=== PATIENT | male | born 1980 | race African-American/Black ===

== ENCOUNTER 2020-06-14 22:25 | Emergency (ER) | payer SELFPAY ==
[2020-06-14 22:26] VITALS: BP 127/72; PULSE 74; RESP 18; TEMP 36.6; O2SAT 97; BMI 24.3
--- NOTE | 2020-06-14 22:30 | ED_ITS ---
HPI - Abdominal Pain General Chief Complaint: Abdominal Pain Stated Complaint: abdominal pain Time Seen by Provider: 06/14/20 22:30 Source: patient Mode of arrival: ambulatory Limitations: no limitations History of Present Illness HPI narrative: this is a 40-year-old male who presents with gradually improvement GI symptoms that started and at that time he thought was attributable to either contaminated food or a possible mild infection. He experience some stomach discomfort with some nausea and vomiting but denies any associated diarrhea at that time and has had no fevers or chills. He reports that he was evaluated at [facility] on Sunday and at that time had lab work, ultrasound, CT scan conducted without any acute findings and he was discharged. He states that since that time he has had gradual improvement in his appetite and ability to tolerate small amounts of food. His concern today is that he still having some mild discomfort although he states it does feel much better than previously. Related Data Allergies Allergy/AdvReac Type Severity Reaction Status Date / Time No Known Allergies Allergy Unverified 04/01/20 15:15 Review of Systems Review of Systems Pertinent positives and negatives as stated in HPI 10 point review of systems otherwise negative. Physical Exam Vital Signs: Vital Signs: Last Vital Signs Temp 97.8 F 06/14/20 22:26 Pulse 74 06/14/20 22:26 Resp 18 06/14/20 22:26 BP 127/72 06/14/20 22:26 Pulse Ox 97 06/14/20 22:26 Body Mass Index 24.3 VITAL SIGNS: Reviewed. GENERAL: Well developed, well nourished, in no acute distress. HEAD: Normocephalic/atraumatic, EYES: PERRLA, EOMI intact without pain, no nystagmus/pallor/icterus noted EARS: Ext canals without abnormality, TMs non-bulging and non-erythematous NOSE: Nares patent bilateral OROPHARYNX: no oral lesions noted, posterior pharynx clear and non-erythematous without noted tonsillar enlargement/erythema/exudates NECK: Supple, no adenopathy LUNGS: Normal breath sounds. No adventitious sounds or accessory muscle use. SpO2<97> CARDIOVASCULAR: Regular rate and rhythm without noted murmurs, no JVD or lower extremity edema. ABDOMEN: Soft, non-tender, non-distended with bowel sounds. No rigidity. No guarding. No palpable masses or hernias noted MUSCULOSKELETAL: No tenderness, deformities, or effusions noted on gross inspection. EXTREMITIES: No cyanosis, clubbing or edema. SKIN: Inspection of the skin reveals no rashes, ulcerations, jaundice, pallor, or petechiae. NEUROLOGIC: Alert and oriented x 4. Strength and sensation to light touch were grossly intact x 4. Course Course Course Narrative: This is a 40-year-old male with history and clinical presentation consistent with likely food contamination versus viral gastroenteritis and as discussed with him at bedside it appears that he is gradually improving and that whole recovery is likely to take another 2-3 days. He was reassured that he is doing everything correctly and that he could be offered a GI cocktail and re-evaluated for improvement with subsequent recommendations to continue as outpatient with gradual increase in p.o. intake. All records from [facility] were reviewed to include labs and imaging that was conducted and confirmed there were no acute findings that would further explain patient's symptoms. Once again, he has had gradual improvement and he will be discharged home in stable condition. Discharge Plan Discharge Clinical Impression: Gastroenteritis Patient Disposition: Home, Self-Care Instructions: Gastritis (ED), Diet for Stomach Ulcers and Gastritis (ED) Additional Instructions: 1. Please review the recommendations for dietary guidelines for gastritis which should include limiting spicy, fatty, citrus, caffeine, or carbonated food items. 2. in addition, avoid extreme of temperatures. For example to not drink ice water or hot beverages. 3. recommend Maalox as directed on the outside bottle for additional symptom relief until your stomach is fully recovered. 4. continue with bland diet The patient and/or family acknowledge understanding of results (as applicable), diagnosis, treatment plan, need for follow up, and symptoms that should prompt a return to the emergency room. [facility] Past Medical History Source: nursing notes reviewed Social History Social History Advance Directives: No Advance Directives Information Provided: No
[2020-06-14] MEDS: Lidocaine HCl Viscous 2 % 15 ML SOLUTION 10 ML MUCOUS MEM (23:10)
[2020-06-14] MEDS: Magnesium Hydrox/Alum Hydrox 30 ML ORAL.SUSP PO (23:11)
--- NOTE | 2020-06-14 23:12 | PC.NURSE ---
Pt medicated per EMAR.
--- NOTE | 2020-06-14 23:42 | PC.NURSE ---
Pt reports feeling slightly better after GI cocktail. Pt aware of plan to obtain records from his recent visit to [facility].
[2020-06-15 01:00] VITALS: BP 124/88; PULSE 100; RESP 16; O2SAT 99
== END 2020-06-15 01:06 | disposition home or self-care (01) ==
PROVIDERS: Emergency Provider Student in an Organized Health Care Education/Training Program
DX: K52.9 Noninfective gastroenteritis and colitis, unspecified (principal); R10.9 Unspecified abdominal pain
CPT/HCPCS: 99283

== ENCOUNTER 2020-06-19 01:38 | Emergency (ER) | payer SELFPAY ==
[2020-06-19 01:40] VITALS: BP 124/76; PULSE 73; RESP 16; TEMP 37.2; O2SAT 97; BMI 24.3
--- NOTE | 2020-06-19 01:55 | ED.ABDPAIN ---
HPI - Abdominal Pain General Chief Complaint: Abdominal Pain Stated Complaint: abd pain Time Seen by Provider: 06/19/20 01:55 Source: patient Mode of arrival: ambulatory Limitations: no limitations History of Present Illness HPI narrative: patient with no significant past medical history notice upper abdominal pain after having Thanksgiving dinner with his family pain is and knows the upper abdomen patient went to [facility] had a CT scan and ultrasound which were negative his blood was also normal patient was seen here 06/14 for the same thing. Patient feels nauseated sometimes pain increases on head eating food have normal bowel movements under increased stress because of abdominal pain. Patient denied any fever no chills no cough Pertinent past history: none Onset (ago): week(s) (1) Pain Consistency: intermittent Location: epigastric Severity: mild Quality: cramping Radiation: none Migration to: no migration Exacerbating factors: eating Relieving factors: nothing Associated symptoms: nausea Related Data Previous Rx's Medication Instructions Recorded dicyclomine 20 mg PO QID PRN #20 tab 06/19/20 omeprazole 40 mg PO DAILY 28 Days #28 cap 06/19/20 Allergies Allergy/AdvReac Type Severity Reaction Status Date / Time No Known Allergies Allergy Unverified 04/01/20 15:15 Review of Systems Review of Systems REVIEW OF SYSTEMS: Pertinent positives and negatives are stated above in the history. GEN: no fevers, chills, fatigue HEENT: no nasal congestion, sore throat, ear pain NEURO: no headache, dizziness, focal weakness PULM: no cough, shortness of breath CV: no chest pain, palpitations, LE edema ABD: no vomiting, diarrhea : no dysuria, urgency, frequency SKIN: no rash ROS otherwise negative x 10 Physical Exam Vital Signs: Vital Signs: Last Vital Signs Temp 99.0 F 06/19/20 01:40 Pulse 73 06/19/20 01:40 Resp 16 06/19/20 01:40 BP 124/76 06/19/20 01:40 Pulse Ox 97 06/19/20 01:40 Body Mass Index 24.3 VITAL SIGNS: Reviewed. GENERAL: Well developed, well nourished, in no acute distress. HEAD: Normocephalic/atraumatic, EYES: PERRLA No pallor/icterus noted OROPHARYNX: Oral mucosa moist no oral lesions NECK: Supple, no adenopathy LUNGS: Normal breath sounds. No adventitious sounds or accessory muscle use CARDIOVASCULAR: Regular rate and rhythm without noted murmurs, no JVD or lower extremity edema. ABDOMEN: Soft, mild epigastric tenderness non-distended with normal bowel sounds. No rigidity. No guarding. No palpable masses or hernias noted MUSCULOSKELETAL: No tenderness, deformities, EXTREMITIES: No cyanosis or edema. SKIN: no rashes, ulcerations, jaundice, pallor, or petechiae NEUROLOGIC: Alert and oriented x 3. Strength and sensation to light touch were grossly intact MDM - Abdominal Pain MDM Narrative Medical decision making narrative: patient with upper abdominal pain likely IBS whole workup at [facility] including CT scan ultrasound and blood workup was negative pain is nonfocal is mostly in upper abdomen which increases after eating food. currently patient is not taking any medication Will start patient on Prilosec and Bentyl Differential Diagnosis Differential diagnosis: Likely abdominal pain Discharge Plan Discharge Clinical Impression: IBS (irritable bowel syndrome) Qualifiers: Irritable bowel syndrome type: unspecified Qualified Code(s): K58.9 - Irritable bowel syndrome without diarrhea Gastritis Qualifiers: Gastritis type: superficial Chronicity: acute Gastritis bleeding: without bleeding Qualified Code(s): K29.00 - Acute gastritis without bleeding Patient Disposition: Home, Self-Care Instructions: Gastritis (ED), Irritable Bowel Syndrome (ED) Additional Instructions: drink plenty of fluids, have light food, avoid greasy / spicy food take medication as prescribed Follow with PCP if not better Prescriptions: New dicyclomine 20 mg tablet 20 mg PO QID PRN (Reason: abdominal pain) Qty: 20 RF: 0 omeprazole 40 mg capsule,delayed release(DR/EC) 40 mg PO DAILY 28 Days Qty: 28 RF: 0 Interventions: ED Discharge Assessment Last Done: 06/19/20 03:01 Discharge Date/Time: 06/19/20 03:01 [facility] Past Medical History Medical History No known health problems Social History Social History Advance Directives: No Advance Directives Information Provided: No
[2020-06-19] MEDS: Omeprazole 40 MG CAPSULE.DR PO (02:36)
[2020-06-19] MEDS: Dicyclomine HCl 10 MG CAPSULE 20 MG PO (02:36)
== END 2020-06-19 03:01 | disposition home or self-care (01) ==
PROVIDERS: Emergency Provider Internal Medicine
DX: K58.9 Irritable bowel syndrome, unspecified (principal); K29.00 Acute gastritis without bleeding
CPT/HCPCS: 99283

== ENCOUNTER 2020-07-07 23:02 | Emergency (ER) | payer MEDICAID, SELFPAY ==
[2020-07-07 23:12] VITALS: BP 136/88; PULSE 90; RESP 18; TEMP 37.1; O2SAT 97; BMI 24.8
--- NOTE | 2020-07-07 23:27 | PC.NURSE ---
Per patient noone ever knows what's wrong with me. I just feels like somethings wrong and noone is taking it seriously. pt showed two rx bottles that he was perscribed for abd pain. Pt reports bentyl works for him and makes it slightly better . pt is also rx omprezole.
--- NOTE | 2020-07-07 23:39 | ED_ITS ---
HPI - General Adult General Chief complaint: General Medical Stated complaint: Weakness Source: patient Mode of arrival: ambulatory Limitations: no limitations History of Present Illness HPI narrative: 40-year-old male with no significant past medical history presents with weakness, chest tightness, abdominal pain, anorexia, 15 lb weight loss over the past 3 weeks, and nausea. Has been seen at [facility] the day after since [place], had a negative CT scan of the abdomen. He states that the discomfort, nausea, anorexia and weight loss have increased over the past few weeks and that he has lost about 15 lb. He does not describe any fevers or chills, abdominal distention, dysuria, hematuria, changes in vision, loss of balance or any change in neurological function. Onset (ago): week(s) Location: chest and abdomen Severity: moderate Quality: aching and dull Pain Consistency: constant Relieving factors: none Exacerbating factors: eating Associated symptoms: loss of appetite, malaise, nausea/vomiting and weakness Related Data Previous Rx's Medication Instructions Recorded dicyclomine 20 mg PO QID PRN #20 tab 06/19/20 omeprazole 40 mg PO DAILY 28 Days #28 cap 06/19/20 ondansetron HCl [Zofran] 4 mg PO Q8H PRN #20 tab 07/08/20 Allergies Allergy/AdvReac Type Severity Reaction Status Date / Time No Known Allergies Allergy Unverified 04/01/20 15:15 Review of Systems Review of Systems: Constitutional: No Fever, positive Chills, positive fatigue, positive Malaise ENT/Mouth: No sore throat, no runny nose Eyes: No Discharge Cardiovascular: Positive Chest Pain, No SOB Respiratory: No Cough, No Sputum, No Wheezing, No Smoke Exposure, No Dyspnea Gastrointestinal: Positive Nausea, No Vomiting, No Diarrhea, positive anorexia, positive weight loss Genitourinary: no irregular bleeding, No Dysuria, No Urinary Frequency, No Hematuria, No Urinary Incontinence, No Urgency, No Flank Pain, Musculoskeletal: positive Myalgia Skin: No rash Neuro: No Headache Yes all other systems are reviewed and are negative [facility] Past Medical History Attestation statement: The following information was validated with the patient. Medical History No known health problems Social History Social History Alcohol intake: former Smoking Status: Never smoker Smoked in Last 30 Days: No Use of substances other than those prescribed or required for medical reasons: No Advance Directives: No Advance Directives Information Provided: No Physical Exam Vital Signs: Vital Signs: Last Vital Signs Temp 98.8 F 07/07/20 23:12 Pulse 90 07/07/20 23:12 Resp 18 07/07/20 23:12 BP 136/88 07/07/20 23:12 Pulse Ox 97 07/07/20 23:12 Body Mass Index 24.8 Appearance: Alert. Oriented X3. Mild distress. Head: Normal external exam. Normocephalic. Atraumatic. Eyes: PERRLA. EOMI. Conjunctiva and sclera normal. Eyelids normal. ENT: TM's Normal. Pharynx normal. Uvula midline. Moist mucous membranes. No trismus noted. No drooling noted. No muffled voice noted. Neck: Normal inspection. Neck supple. No adenopathy. No meningeal signs. No neck mass noted. CVS: Normal heart rate and rhythm. Heart sound normal. No murmurs noted. Pulses equal to all extremities. Respiratory: No respiratory distress. Painless inspiration. Breath sounds normal. No wheezes/rales/rhonchi noted. Chest nontender. No accessory muscle usage noted or decreased air movement noted. Abdomen: Soft and nontender. Bowel sounds normal in all 4 quadrants. No distention noted. No organomegaly noted. No visible injury noted. Back: No CVA tenderness. Full range of motion noted. Skin: Skin warm and dry. Normal skin color. Normal skin turgor. No rashes/lesions/lacerations noted. Extremities: No lower extremity edema. Extremities exhibit normal range of motion. Extremities nontender. Neuro: cranial nerves 2-12 intact, no focal neural deficits, strength 5/5 to all extremities, No motor deficit. No sensory deficit. Course Course Course Narrative: 40-year-old male with multiple complaints. Plan of care is to rule out ACS, COVID-[address] scan of the chest as his symptoms have been persistent for the past several weeks and a COVID swab would be negative, lab values and urinalysis. Lab values are unremarkable, EKG is normal sinus rhythm, troponins are negative. CT scan is negative for acute findings, incidental finding of a 9 mm liver cyst. Detailed description of lab values and that he needs to follow up with [facility] for further workup. Patient verbalized understanding of and agrees to plan of care to discharge home. Medical Decision Making Medical Records Medical records reviewed: Yes I reviewed the patient's medical records. Lab Data Lab results reviewed: Yes I reviewed the patient's lab results. Result diagrams: 07/07/20 23:57 07/07/20 23:57 Labs: Lab Results 07/07/20 07/07/20 07/07/20 Range/Units 23:52 23:57 23:57 WBC 6.1 (4.8-10.8) X10*3/uL RBC 4.38 L (4.60-5.80) X10*6/uL Hgb 13.3 L (14.0-18.0) g/dl Hct 38.7 L (42-52) % MCV 88.4 (80-98) fL MCH 30.4 (27.0-33.0) pg MCHC 34.4 (31.0-36.0) g/dl RDW 11.3 (11.0-16.0) % Plt Count 192 (160-400) X10*3/uL MPV 10.1 (9.4-12.4) fL Immature Gran % (Auto) 0.2 (0.0-0.4) % Neut % (Auto) 80.7 H (45-73) % Lymph % (Auto) 11.1 L (20-40) % [place] % (Auto) 6.7 (2-11) % Eos % (Auto) 1.0 (0-4) % Baso % (Auto) 0.3 (0-2) % Lymph # (Auto) 0.7 L (1.2-4.9) X10*3/uL [place] # (Auto) 0.4 (0.1-1.2) X10*3/uL Eos # (Auto) 0.1 (0.0-0.4) X10*3/uL Baso # (Auto) 0.0 (0.0-0.2) X10*3/uL Abs Immat Gran (auto) 0.01 (0.00-0.03) X10*3/uL Absolute Neuts (auto) 4.9 (2.0-8.3) X10*3/uL Absolute Nucleated RBC 0.000 (0.0-0.012) X10*3/uL Nucleated RBC % (auto) 0.0 (0.0-0.2) /100WBC Smear Tech's Comments VERIFIED Sodium 141 (135-145) mmol/L Potassium 3.8 (3.3-5.1) mmol/l Chloride 105 (96-108) mmol/L Carbon Dioxide 26 (22-29) mmol/L Anion Gap 14 (12-20) BUN 9 (9-16) mg/dL Creatinine 1.06 (0.5-1.4) mg/dL Estim Creat Clear Calc 94.6 Estimated GFR > 60 Random Glucose 107 (60-115) mg/dL Calcium 9.2 (8.4-10.2) mg/dL Magnesium 2.3 (1.6-2.6) mg/dL Total Bilirubin 0.6 (0.0-1.0) mg/dL Direct Bilirubin 0.2 (0.0-0.5) mg/dL AST 13 (5-37) U/L ALT 9 (0-40) U/L Alkaline Phosphatase 43 (39-117) U/L Total Protein 7.2 (6.5-8.0) g/dL Albumin 4.4 (3.5-5.0) g/dL Lipase 40 (8-78) U/L Urine Color DARK YELLOW Urine Appearance CLEAR Urine pH 5.5 (5.0-8.0) Ur Specific Wh[place] 1.025 (1.005-1.025) Urine Protein NEG (NEG-TRACE) MG/DL Urine Glucose (UA) NEG (NEG) MG/DL Urine Ketones NEG (NEG) MG/DL Urine Blood NEG (NEG) Urine Nitrite NEG (NEG) Ur Leukocyte Esterase NEG (NEG) Imaging Data CT scan - chest: Attestation: I personally reviewed and interpreted this imaging study as follows: Radiologist's impression: EXAMINATION: CT CHEST WITHOUT CONTRAST CLINICAL INFORMATION: Chest pain and tightness. COMPARISON: None. TECHNIQUE: Contiguous axial thin section helical images of the chest were performed without contrast. The data set was reformatted in the coronal and sagittal planes and reviewed on an independent workstation. DLP: 295 mGy-cm. FINDINGS: The heart is of normal size. There is no pericardial effusion. There is neither mediastinal, hilar nor axillary lymphadenopathy. There are no chest wall masses. Review of lung windows demonstrates that there are neither pleural effusions nor pneumothoraces. There are no consolidations. There are no pulmonary parenchymal nodules. Images of the upper abdomen demonstrate that the liver is of normal size and attenuation without concerning focal lesions. There is a 9 mm cyst within the right lobe of the liver. Normal adrenal glands are identified. Bone windows: Neither sclerotic nor lytic bone lesions are identified. CT/CT chest wo con IMPRESSION: Unremarkable chest CT. Automated exposure control (Care Dose) Adjustment of the mA and/or kv according to patient size (this includes techniques or standardized protocols for targeted exams where dose is matched to indication / reason for exam; i.e. extremities or head). ECG Data Attestation: I personally reviewed and interpreted this ECG as follows: Prior ECG tracings: not available for review Interpretation: Vent. rate 73 BPM TX interval 176 ms QRS duration 86 ms QT/QTc 368/405 ms P-R-T axes 40 53 8 Normal sinus rhythm Normal ECG No previous ECGs available Discharge Plan Discharge Clinical Impression: Anemia Qualifiers: Anemia type: unspecified type Qualified Code(s): D64.9 - Anemia, unspecified Gastritis Qualifiers: Gastritis type: unspecified gastritis Chronicity: acute Gastritis bleeding: presence of bleeding unspecified Qualified Code(s): K29.00 - Acute gastritis without bleeding Patient Disposition: Home, Self-Care Instructions: Gastritis (ED), Anemia (ED) Additional Instructions: You were evaluated for multiple concerns. Chest CT is negative for acute findings. Incidental finding on your CT scan is a 9 mm liver cyst, please follow-up with Gastroenterology for this finding. Lab values are negative. EKG is normal sinus rhythm, troponin is negative. Please follow-up with Gastroenterology. Please call and make an appointment. You may need further workup with possible endoscopy and or colonoscopy for anemia, weight loss, anorexia, reflux symptoms and gastritis. Thank you for choosing this emergency department for evaluation. Please follow-up with primary care physician as needed. Return to the emergency department for any new, concerning, or worsening symptoms. Prescriptions: New ondansetron HCl [Zofran] 4 mg tablet 4 mg PO Q8H PRN (Reason: nausea and vomiting) Qty: 20 RF: 0 No Action dicyclomine 20 mg tablet 20 mg PO QID PRN (Reason: abdominal pain) Qty: 20 RF: 0 omeprazole 40 mg capsule,delayed release(DR/EC) 40 mg PO DAILY 28 Days Qty: 28 RF: 0 Referrals: Arnaud Gonsales [Physician] - 2 days (Anemia, weight loss, anorexia, gastritis, abdominal pain)
--- NOTE | 2020-07-07 23:40 | ECG_ITS ---
Test Reason : WEAKNESS Blood Pressure : / mmHG Vent. Rate : 073 BPM Atrial Rate : 073 BPM P-R Int : 176 ms QRS Dur : 086 ms QT Int : 368 ms P-R-T Axes : 040 053 008 degrees QTc Int : 405 ms Normal sinus rhythm Normal ECG No previous ECGs available Referred By: Linda Bruno Electronically Signed By:TO ECHOLS MD
[2020-07-08] VITALS: PULSE 67; RESP 18; O2SAT 100
--- NOTE | 2020-07-08 | CT_ITS ---
EXAMINATION: CT CHEST WITHOUT CONTRAST CLINICAL INFORMATION: Chest pain and tightness. COMPARISON: None. TECHNIQUE: Contiguous axial thin section helical images of the chest were performed without contrast. The data set was reformatted in the coronal and sagittal planes and reviewed on an independent workstation. DLP: 295 mGy-cm. FINDINGS: The heart is of normal size. There is no pericardial effusion. There is neither mediastinal, hilar nor axillary lymphadenopathy. There are no chest wall masses. Review of lung windows demonstrates that there are neither pleural effusions nor pneumothoraces. There are no consolidations. There are no pulmonary parenchymal nodules. Images of the upper abdomen demonstrate that the liver is of normal size and attenuation without concerning focal lesions. There is a 9 mm cyst within the right lobe of the liver. Normal adrenal glands are identified. Bone windows: Neither sclerotic nor lytic bone lesions are identified. CT/CT chest wo con IMPRESSION: Unremarkable chest CT. Automated exposure control (Care Dose) Adjustment of the mA and/or kv according to patient size (this includes techniques or standardized protocols for targeted exams where dose is matched to indication / reason for exam; i.e. extremities or head).
[2020-07-08 00:13] LABS: Basophils Percent Auto 0.3 % (0-2); Eosinophils Absolute Auto 0.1 X10*3/uL (0.0-0.4); Hematocrit 38.7 % (42-52); Hemoglobin 13.3 g/dl (14.0-18.0); Imm Gran Abs Auto 0.01 X10*3/uL (0.00-0.03); Imm Gran Pct Auto 0.2 % (0.0-0.4); Lymphocytes Absolute Auto 0.7 X10*3/uL (1.2-4.9); Lymphocytes Percent Auto 11.1 % (20-40); Mean Corpuscular HGB Conc 34.4 g/dl (31.0-36.0); Mean Corpuscular Hemoglobin 30.4 pg (27.0-33.0); Mean Corpuscular Volume 88.4 fL (80-98); Mean Platelet Volume 10.1 fL (9.4-12.4); Monocytes Absolute Auto 0.4 X10*3/uL (0.1-1.2); Monocytes Percent Auto 6.7 % (2-11); Neutrophils Absolute Auto 4.9 X10*3/uL (2.0-8.3); Neutrophils Percent Auto 80.7 % (45-73); Platelet Count 192 X10*3/uL (160-400); Red Blood Count 4.38 X10*6/uL (4.60-5.80); Red Cell Distribution Width 11.3 % (11.0-16.0); SCAN SMEAR FLAG 1; White Blood Count 6.1 X10*3/uL (4.8-10.8)
[2020-07-08 00:16] LABS: Glucose Urine UA NEG (NEG); Leukocyte Esterase Urine NEG (NEG); Nitrite Urine NEG (NEG); PH 5.5 (5.0-8.0); Specific Gravity - Urine 1.025 (1.005-1.025); Urine Blood NEG (NEG); Urine Ketones NEG (NEG); Urine Protein NEG (NEG-TRACE)
[2020-07-08 00:16] LABS: MANUAL DIFF FLAG SCAN
[2020-07-08 00:18] LABS: Appearance Urine CLEAR; Color Urine DARK YELLOW; UACC Culture Trigger NO
[2020-07-08 00:30] LABS: SLIDE REVIEW VERIFIED
[2020-07-08 00:38] LABS: Alanine Aminotransferase 9 U/L (0-40); Albumin Level 4.4 g/dL (3.5-5.0); Alkaline Phosphatase 43 U/L (39-117); Anion Gap 14 (12-20); Aspartate Amino Transferase 13 U/L (5-37); Bilirubin Direct 0.2 mg/dL (0.0-0.5); Bilirubin Total 0.6 mg/dL (0.0-1.0); Blood Urea Nitrogen 9 mg/dL (9-16); Calcium 9.2 mg/dL (8.4-10.2); Carbon Dioxide 26 mmol/L (22-29); Chloride 105 mmol/L (96-108); Creatinine Clr Calc Pharmacy 94.6; Estimated Glomerular Filt Rate > 60; Glucose Random 107 mg/dL (60-115); Lipase 40 U/L (8-78); Magnesium 2.3 mg/dL (1.6-2.6); Potassium 3.8 mmol/l (3.3-5.1); Sodium 141 mmol/L (135-145); Total Protein 7.2 g/dL (6.5-8.0)
[2020-07-08 00:44] LABS: Troponin-I High Sensitivity < 3.5 ng/L (<3.5-35.0)
== END 2020-07-08 01:09 | disposition home or self-care (01) ==
PROVIDERS: Nurse Practitioner Family; Emergency Provider Internal Medicine
DX: D64.9 Anemia, unspecified (principal); K29.00 Acute gastritis without bleeding; R07.89 Other chest pain; R93.5 Abnormal findings on diagnostic imaging of other abdominal regions, including retroperitoneum; K76.89 Other specified diseases of liver
CPT/HCPCS: 36415; 71250; 80048; 80076; 81003; 83690; 83735; 84484; 85025; 93005; 99284

== ENCOUNTER 2020-07-26 07:18 | Emergency (ER) | payer OTHER, SELFPAY ==
--- NOTE | 2020-07-26 07:33 | US_ITS ---
EXAMINATION: US TRIPLEX LOWER EXTREMITY, LEFT CLINICAL INFORMATION: Calf pain. COMPARISON: None. TECHNIQUE: Color-flow triplex imaging with spectral analysis and compression Doppler were performed on the left lower extremity. FINDINGS: Respiratory variation, normal compression and augmented flow are noted throughout the left lower extremity. The visualized common femoral vein, superficial femoral vein, profunda femoral vein, popliteal vein and midcalf peroneal and posterior tibial venous segments show no evidence of deep venous thrombosis. The contralateral common femoral vein demonstrates normal respiratory variation. There are no focal fluid collections. US/US venous duplex LE RT IMPRESSION: 1. Normal triplex scan without evidence of deep venous thrombosis involving the left lower extremity. 2. There are no focal fluid collections.
[2020-07-26 08:56] VITALS: BP 134/72; PULSE 73; RESP 14; TEMP 37.3; O2SAT 98; BMI 23.6
--- NOTE | 2020-07-26 09:07 | ED.LOWEXIN ---
HPI - Extremity Injury (Lower) General Chief Complaint: Extremity Injury, Lower Stated Complaint: rt calf pain Time Seen by Provider: 07/26/20 07:20 Source: patient Mode of arrival: ambulatory Limitations: no limitations History of Present Illness HPI Narrative: 40 yo male with no PMH presents to the ED with non-traumatic right calf pain for the last 2 weeks. He describes the pain as aching and worse with movement and palpation. He has been trying to massage the area without improvement. After being on his feet all day yesterday the pain was worse. He denies swelling, redness, skin changes, chest pain, SOB. MD complaint: other (right lower leg pain) Onset (ago): week(s) (2) Type of Injury: unknown Severity: moderate Relieving factors: rest Exacerbating factors: weight bearing, movement and palpation Associated symptoms: ambulatory Other symptoms: none Related Data Previous Rx's Medication Instructions Recorded dicyclomine 20 mg PO QID PRN #20 tab 06/19/20 omeprazole 40 mg PO DAILY 28 Days #28 cap 06/19/20 ondansetron HCl [Zofran] 4 mg PO Q8H PRN #20 tab 07/08/20 Allergies Allergy/AdvReac Type Severity Reaction Status Date / Time No Known Allergies Allergy Unverified 04/01/20 15:15 Review of Systems Review of Systems: Constitutional: No Fever, No Chills Cardiovascular: No Chest Pain, No SOB, No Edema Respiratory: No Cough, No Sputum, No Wheezing, No dyspnea Gastrointestinal: No abdominal Pain, Musculoskeletal: No joint pain, + Myalgias Skin: No Skin Lesions, No rash Neuro: No Weakness, No Numbness PMFSH Past Medical History Attestation statement: The following information was validated with the patient. Medical History No known health problems Social History Social History Alcohol intake: former Smoking Status: Never smoker Advance Directives: No Advance Directives Information Provided: Yes Physical Exam Vital Signs: Vital Signs: Last Vital Signs Temp 99.1 F 07/26/20 08:56 Pulse 73 07/26/20 08:56 Resp 14 07/26/20 08:56 BP 134/72 07/26/20 08:56 Pulse Ox 98 07/26/20 08:56 Body Mass Index 23.6 Appearance: Alert. Oriented X3. No acute distress. HEENT: normal inspection CVS: Normal heart rate and rhythm. Pulses normal. Respiratory: No respiratory distress. Lungs CTAB Skin: Skin warm and dry. Normal skin color. Normal skin turgor. No rashes. Extremities: right leg with normal inspection, right gastronemius tenderness, no erythema, no ecchymosis, no swelling or edema, 2+ dp pulses, warm and well perfused. normal left LE Neuro: Oriented X 3. No motor deficit. No sensory deficit. Course Course Course Narrative: 40 y/o male presenting with non-traumatic right calf pain. Exam is benign. LE doppler is negative for DVT. Pain is likely muscular in etiology. Patient informed of results and counseled. He is stable for discharge with plan to f/u with PCP. Scores Wells DVT Alternative Dx as likely as or more likely than DVT: -2 Score: -2 2-tier Risk: unlikely risk (5%) 3-tier Risk: low risk (3%) Critical Care Time Critical Care Time Critical Care Time: No Discharge Plan Discharge Clinical Impression: Calf pain Qualifiers: Laterality: right Qualified Code(s): M79.661 - Pain in right lower leg Patient Disposition: Home, Self-Care Instructions: Muscle Strain (ED) Additional Instructions: Your ultrasound today did not show any evidence of blood clots. Your pain is likely muscular. Recommend using ice and/or heat to the area several times per day. Take Tylenol and/or Motrin as needed for the pain. Gently stretch the area several times per day. You may bear weight as tolerate. Drink plenty of liquids, dehydration can cause muscle spasms. Follow up with your doctor this week if pain persists. Prescriptions: No Action ondansetron HCl [Zofran] 4 mg tablet 4 mg PO Q8H PRN (Reason: nausea and vomiting) Qty: 20 RF: 0 dicyclomine 20 mg tablet 20 mg PO QID PRN (Reason: abdominal pain) Qty: 20 RF: 0 omeprazole 40 mg capsule,delayed release(DR/EC) 40 mg PO DAILY 28 Days Qty: 28 RF: 0 Stand Alone Forms: Work/School Release
== END 2020-07-26 09:35 | disposition home or self-care (01) ==
PROVIDERS: Emergency Provider Emergency Medicine
DX: M79.661 Pain in right lower leg (principal)
CPT/HCPCS: 93971; 99283; 99284

== ENCOUNTER 2020-09-13 08:36 | Emergency (ER) | payer OTHER, SELFPAY ==
--- NOTE | 2020-09-13 09:18 | ED.ABDPAIN ---
HPI - Abdominal Pain General Stated Complaint: stomach pain Time Seen by Provider: 09/13/20 09:17 Source: patient and old records reviewed Mode of arrival: ambulatory Limitations: no limitations History of Present Illness MD elicited complaint: other (chronic abdominal pain and constipation) Pertinent past history: constipation Onset (ago): day(s) (1) Pain Consistency: intermittent Location: diffuse Severity: similar to previous episodes Quality: fullness Radiation: none Migration to: no migration Exacerbating factors: nothing Relieving factors: bowel movement Context: history of similar episodes Associated symptoms: constipation Related Data Previous Rx's Medication Instructions Recorded dicyclomine 20 mg PO QID PRN #20 tab 06/19/20 omeprazole 40 mg PO DAILY 28 Days #28 cap 06/19/20 ondansetron HCl [Zofran] 4 mg PO Q8H PRN #20 tab 07/08/20 lactulose 20 g PO BID PRN #1200 ml 09/13/20 Allergies Allergy/AdvReac Type Severity Reaction Status Date / Time No Known Allergies Allergy Unverified 04/01/20 15:15 Review of Systems Review of Systems Constitutional : No Weight loss, No Fever, No Chills ENT/Mouth : No sore throat, No Rhinorrhea Eyes: No Swelling, No Redness Cardiovascular : No Chest Pain, No SOB, NoEdema Respiratory : No Cough, No Sputum, No Wheezing Gastrointestinal : no Nausea, no Vomiting, no Diarrhea, positive abdominal Pain, No Hematochezia, No Melena, pos constipation Genitourinary : No Dysuria, No Urinary Frequency, No Hematuria, No Urgency Musculoskeletal : No joint pain, No Myalgias, No Joint Swelling Skin : No Skin Lesions, No rash Neuro : No Weakness, No Numbness, No Dizziness, No Headache Psych : No Anxiety/Panic, No Depression Heme/Lymph: No Bruising, No Lymphadenopathy Endocrine : No Polyuria, No Polydipsia All other systems reviewed and are negative. Physical Exam Vital Signs: Appearance: Alert. Oriented X3. No acute distress. Eyes: Pupils equal, round and reactive to light. ENT: Pharynx normal. Neck: Normal inspection. Neck supple. CVS: Normal heart rate and rhythm. Pulses normal. Respiratory: No respiratory distress. Breath sounds normal. Abdomen: Soft and non-tender. Skin: Skin warm and dry. Normal skin color. Normal skin turgor. Extremities: No lower extremity edema. No calf ttp Neuro: Oriented X 3. No motor deficit. No sensory deficit. MDM - Abdominal Pain MDM Narrative Medical decision making narrative: 40 yo male with chronic abdominal pain and constipation since Thanksgiving here with same but reports constipation, he has PCP appointment this month and needs GI referral - he states he feels like he has to have BM but cannot hx of same in past - offered labs and imaging but he refused states he just wants something to make him have BM, instructed to return if he is worse or if he changes his mind Discharge Plan Discharge Clinical Impression: Constipation Qualifiers: Constipation type: unspecified constipation type Qualified Code(s): K59.00 - Constipation, unspecified Patient Disposition: Home, Self-Care Instructions: Constipation (ED) Additional Instructions: return to ED for any worsening symptoms or concerns if you decide you want testing please come back at any time Prescriptions: New lactulose 20 gram/30 mL solution 20 g PO BID PRN (Reason: constipation) Qty: 1200 RF: 0 No Action ondansetron HCl [Zofran] 4 mg tablet 4 mg PO Q8H PRN (Reason: nausea and vomiting) Qty: 20 RF: 0 dicyclomine 20 mg tablet 20 mg PO QID PRN (Reason: abdominal pain) Qty: 20 RF: 0 omeprazole 40 mg capsule,delayed release(DR/EC) 40 mg PO DAILY 28 Days Qty: 28 RF: 0 Stand Alone Forms: Work/School Release [facility] Past Medical History Attestation statement: The following information was validated with the patient. Medical History No known health problems Social History Social History Alcohol intake: former Smoking Status: Never smoker
[2020-09-13 10:23] VITALS: BP 109/73; PULSE 78; RESP 18; TEMP 36.9; O2SAT 97; BMI 22.9
== END 2020-09-13 11:17 | disposition home or self-care (01) ==
LOC: HO.ED 10:22
PROVIDERS: Emergency Provider Emergency Medicine
DX: K59.00 Constipation, unspecified (principal)
CPT/HCPCS: 99283

== ENCOUNTER 2020-09-17 19:37 | Emergency (ER) | payer OTHER, SELFPAY ==
[2020-09-17 19:47] VITALS: BP 133/86; PULSE 88; RESP 18; TEMP 36.4; O2SAT 98; BMI 22.2
--- NOTE | 2020-09-17 20:10 | ED.ABDPAIN ---
HPI - Abdominal Pain General Chief Complaint: Abdominal Pain Stated Complaint: Abdominal pain Time Seen by Provider: 09/17/20 20:10 Source: patient Mode of arrival: ambulatory Limitations: no limitations History of Present Illness HPI narrative: Patient has chronic abdominal issues history of constipation no nausea no vomiting no diarrhea on dicyclomine and Ativan says pain is still going on no nausea no vomiting no diarrhea no fever patient eating well otherwise Related Data Previous Rx's Medication Instructions Recorded dicyclomine 20 mg PO QID PRN #20 tab 06/19/20 omeprazole 40 mg PO DAILY 28 Days #28 cap 06/19/20 ondansetron HCl [Zofran] 4 mg PO Q8H PRN #20 tab 07/08/20 lactulose 20 g PO BID PRN #1200 ml 09/13/20 dicyclomine 20 mg PO QID PRN #20 tab 09/17/20 lorazepam [Ativan] 1 mg PO BEDTIME PRN #10 tab 09/17/20 Allergies Allergy/AdvReac Type Severity Reaction Status Date / Time No Known Allergies Allergy Verified 09/17/20 19:50 Review of Systems Review of Systems Yes all other systems are reviewed and are negative Physical Exam Vital Signs: Vital Signs: Last Vital Signs Temp 97.5 F 09/17/20 19:47 Pulse 88 09/17/20 19:47 Resp 18 09/17/20 19:47 BP 133/86 09/17/20 19:47 Pulse Ox 98 09/17/20 19:47 Body Mass Index 22.2 Appearance: Alert. Oriented X3. No acute distress. Eyes: PERRLA, No Nystagmus ENT: Pharynx normal. Oral Mucosa moist Neck: Normal inspection. Neck supple. CVS: Normal heart rate and rhythm. Pulses normal. Respiratory: No respiratory distress. Equal air entry bilateral, no wheezing/rales/rhonchi Abdomen: Soft and nontender. Bowel sounds are present, no mass palpable, no CVA tenderness Skin: Skin warm and dry. Normal skin color. Normal skin turgor. Extremities: No lower extremity edema. No calf tenderness Neuro: Oriented X 3. No motor deficit. No sensory deficit.No cerebellar signs , cranial nerves II-XII intact MDM - Abdominal Pain MDM Narrative Medical decision making narrative: Patient with chronic IBS advised to continue dicyclomine and follow with PCP Medical Records Attestation: I reviewed the patient's medical records. Discharge Plan Discharge Clinical Impression: IBS (irritable bowel syndrome) Patient Disposition: Home, Self-Care Instructions: Irritable Bowel Syndrome (ED) Additional Instructions: Take medication as advised and follow up with facilities operator Prescriptions: New dicyclomine 20 mg tablet 20 mg PO QID PRN (Reason: abdominal pain) Qty: 20 RF: 0 lorazepam [Ativan] 1 mg tablet 1 mg PO BEDTIME PRN (Reason: anxiety) Qty: 10 RF: 0 No Action ondansetron HCl [Zofran] 4 mg tablet 4 mg PO Q8H PRN (Reason: nausea and vomiting) Qty: 20 RF: 0 lactulose 20 gram/30 mL solution 20 g PO BID PRN (Reason: constipation) Qty: 1200 RF: 0 dicyclomine 20 mg tablet 20 mg PO QID PRN (Reason: abdominal pain) Qty: 20 RF: 0 omeprazole 40 mg capsule,delayed release(DR/EC) 40 mg PO DAILY 28 Days Qty: 28 RF: 0 Referrals: Arnaud Gonsales [Physician] - 1 week Interventions: ED Discharge Assessment Last Done: 09/17/20 20:48 Discharge Date/Time: 09/17/20 20:49 [facility] Past Medical History Medical History No known health problems Social History Social History Alcohol intake: former Advance Directives: No Advance Directives Information Provided: Yes
[2020-09-17] MEDS: Dicyclomine HCl 10 MG CAPSULE 20 MG PO (20:32)
== END 2020-09-17 20:49 | disposition home or self-care (01) ==
PROVIDERS: Emergency Provider Internal Medicine
DX: K58.9 Irritable bowel syndrome, unspecified (principal); Z91.14 Patient's other noncompliance with medication regimen
CPT/HCPCS: 99283; 99284

== ENCOUNTER 2020-10-10 18:08 | Emergency (ER) | payer OTHER, SELFPAY ==
--- NOTE | 2020-10-10 | ECG_ITS ---
Test Reason : CHEST PAIN Blood Pressure : / mmHG Vent. Rate : 075 BPM Atrial Rate : 075 BPM P-R Int : 178 ms QRS Dur : 092 ms QT Int : 374 ms P-R-T Axes : 075 053 017 degrees QTc Int : 417 ms Normal sinus rhythm Nonspecific T wave abnormality Abnormal ECG When compared to the previous EKG of No significant changes seen Referred By: Generic ED Physician Electronically Signed By:Ej Connors
[2020-10-10 18:24] VITALS: BP 136/87; PULSE 72; RESP 18; TEMP 37.5; O2SAT 98; BMI 21.9
--- NOTE | 2020-10-10 20:16 | ED_ITS ---
HPI - Chest Pain General Chief Complaint: Chest Pain Stated Complaint: chest pain Time Seen by Provider: 10/10/20 19:49 Source: patient Mode of arrival: ambulatory Limitations: no limitations History of Present Illness HPI narrative: 40-year-old male who presents emergency department for evaluation of chest pain. Patient states these been noticing intermittent anterior chest pain for the past 2 weeks, this pain is gotten worse over the past 1-2 days. Patient points to his sternum and left anterior chest when asked to localize the pain. He states that the pain is a sharp pain which is worse if he pushes in t hese areas. States the pain will last minutes then resolved but then return. Gets multiple episodes per day. He has no radiation of the pain to his neck, jaw, back or arms. He denies associated lightheadedness, diaphoresis, nausea, vomiting, shortness of breath or dyspnea on exertion. He denied fever, chills, cough. The patient states he has been having intermittent abdominal pain since May of 2020 and has had multiple ED visits and is being treated with Bentyl for possible IBS. He states that he is waiting to see a nut orchardist in November of 2020 further evaluation of his abdominal pain. Related Data Previous Rx's Medication Instructions Recorded dicyclomine 20 mg PO QID PRN #20 tab 06/19/20 omeprazole 40 mg PO DAILY 28 Days #28 cap 06/19/20 ondansetron HCl [Zofran] 4 mg PO Q8H PRN #20 tab 07/08/20 lactulose 20 g PO BID PRN #1200 ml 09/13/20 dicyclomine 20 mg PO QID PRN #20 tab 09/17/20 lorazepam [Ativan] 1 mg PO BEDTIME PRN #10 tab 09/17/20 Allergies Allergy/AdvReac Type Severity Reaction Status Date / Time No Known Allergies Allergy Verified 09/17/20 19:50 Review of Systems Review of Systems: Yes all other systems are reviewed and are negative [facility] Past Medical History [facility] Narrative: Past medical history since her possible irritable bowel syndrome, the patient denies tobacco, alcohol and drug use. Medical History No known health problems Social History Social History Alcohol intake: former Smoking Status: Never smoker Advance Directives: No Advance Directives Information Provided: Yes Physical Exam Vital Signs: Vital Signs: Last Vital Signs Temp 99.5 F 10/10/20 18:24 Pulse 72 10/10/20 18:24 Resp 18 10/10/20 18:24 BP 136/87 10/10/20 18:24 Pulse Ox 98 10/10/20 18:24 Body Mass Index 21.9 Const: General: cooperative and healthy appearing Orientation/consciousness: oriented to person and oriented to place Limitations: no limitations HENMT: Head: Yes normal to inspection, Yes normocephalic and Yes atraumatic Ears: external ears normal General nose exam: Normal external nose present Face and sinus: Yes normal facial exam Mouth: Normal oral and palatal mucosa present Throat: Yes posterior oropharynx normal Eyes: Periorbital: periorbital findings normal Eyelids: Yes eyelids normal Conjunctivae: conjunctivae normal Sclerae: sclerae normal Corneas: corneas normal Pupils: Equal, round and reactive pupils present Direct Ophthalmoscopy: normal light reflex Neck: Neck: Yes full ROM, Yes no lymphadenopathy, Yes no meningeal signs, Yes trachea midline and Yes supple Chest: Chest palpation & inspection: normal inspection of the chest and tenderness (Sternum and left costochondral joints, moderate) Resp: Effort & Inspection: normal respiratory effort and able to speak in complete sentences Auscultation: clear to auscultation bilaterally Cardio: Rate: regular rate Rhythm: regular rhythm Heart sounds: S1 normal heart sound present, S2 normal heart sound present and no murmurs GI: Inspection: Yes normal to inspection Palpation (GI): Soft to palpation, nontender, no guarding, not rigid and No hepatosplenomegaly present : General: Yes no CVA tenderness Back/Spine/Pelvis: Back: no CVA tenderness Cervical Spine: normal cervical lordosis Thoracic/Lumbar Spine: thoracic and lumbar spine normal to inspection Skin: Lesions: no lesions Rashes: no rashes Wounds: no wounds Neuro: General: oriented to person, oriented to place and no meningeal signs Cranial nerves: Yes CN's II-XII intact bilaterally and Yes Equal, round and reactive pupils present Cognition (Neuro): normal cognition Motor exam (neuro): 5/5 motor strength present throughout Extrem: General: Yes normal to inspection and Yes full ROM Psych: Appearance: well kempt Mental Status: mental status grossly normal Speech and movement: Normal speech and movement present Affect: normal affect Attitude: cooperative Thought process: Normal thought process present Thought content: Normal thought content present Course Course Course Narrative: 40-year-old male with no significant past medical history except for possible your will bowel syndrome who presents emergency department for evaluation of 2 weeks of intermittent chest pain which is worse over the past 2 days. The patient's physical examination did reveal tenderness with palpation of his left costochondral joints and sternum. Twelve lead EKG was unremarkable. Given his description of his symptoms, his presentation and examination is consistent with costochondritis and I did discuss this with him. He was advised to take Tylenol ibuprofen for pain. He was given verbal and printed instructions and discharged home. MDM - Chest Pain ECG Data ECG #1: Attestation: I personally reviewed and interpreted this ECG as follows: Interpretation: Eighteen 19: Normal sinus rhythm rate of 75, normal TN, QRS and QTC intervals, inverted T-wave in lead 3, inverted P wave in V1 with a Q-wave in the 1 otherwise unremarkable. There is no old EKG for comparison. No evidence for cardiac ischemia or acute myocardial infarction. Discharge Plan Discharge Clinical Impression: Acute costochondritis Patient Disposition: Home, Self-Care Instructions: Costochondritis (ED) Additional Instructions: Your EKG was unremarkable. Your examination is consistent with inflammation of the joints of your chest (costochondritis). Take ibuprofen 200 mg pills, 3 pills every 6 hours as needed for pain. Take Tylenol (acetaminophen) 500 mg pills, 2 pills every 4 to 6 hours as needed for pain. Follow-up with your doctor in 2 days. Please return to the emergency department if your symptoms get worse or if you develop any symptoms that are concerning to you. Prescriptions: No Action ondansetron HCl [Zofran] 4 mg tablet 4 mg PO Q8H PRN (Reason: nausea and vomiting) Qty: 20 RF: 0 lactulose 20 gram/30 mL solution 20 g PO BID PRN (Reason: constipation) Qty: 1200 RF: 0 dicyclomine 20 mg tablet 20 mg PO QID PRN (Reason: abdominal pain) Qty: 20 RF: 0 omeprazole 40 mg capsule,delayed release(DR/EC) 40 mg PO DAILY 28 Days Qty: 28 RF: 0 dicyclomine 20 mg tablet 20 mg PO QID PRN (Reason: abdominal pain) Qty: 20 RF: 0 lorazepam [Ativan] 1 mg tablet 1 mg PO BEDTIME PRN (Reason: anxiety) Qty: 10 RF: 0
[2020-10-10 20:26] VITALS: BP 138/82; PULSE 74; RESP 16; TEMP 37.5; O2SAT 99
== END 2020-10-10 20:48 | disposition home or self-care (01) ==
PROVIDERS: Emergency Provider Emergency Medicine Emergency Medical Services; PCP Internal Medicine
DX: M94.0 Chondrocostal junction syndrome [Tietze] (principal); R07.9 Chest pain, unspecified; Z87.891 Personal history of nicotine dependence; Z79.899 Other long term (current) drug therapy
CPT/HCPCS: 93005; 99283

== ENCOUNTER 2024-08-30 23:29 | Emergency (ER) | payer SELFPAY ==
--- NOTE | ~2024-08-30 | CT_ITS ---
CLINICAL HISTORY: fall headstrike CT BRAIN WITHOUT CONTRAST COMPARISON: None. FINDINGS: There is no evidence of an acute infarct or intraparenchymal hemorrhage. There is no mass effect, midline shift, or extra-axial blood. The ventricles are normal in size without evidence of hydrocephalus. The bone windows are unremarkable. There is mucosal thickening in the inferior aspect of the right frontal sinus. Mild soft tissue swelling is noted posterior to the calvarium and to the left of midline on axial image 61 of series 3. IMPRESSION: 1. No acute disease in the brain. Soft tissue swelling is noted posteriorly. This document has been electronically signed by: Abad Lopez M.D. on 08/31/2024 04:17:01
--- NOTE | ~2024-08-30 | CT_ITS ---
CLINICAL HISTORY: fall headstrike neck pain CT CERVICAL SPINE WITHOUT CONTRAST COMPARISON: None. FINDINGS: There is no evidence of an acute fracture or dislocation. Vertebral body heights and alignment are maintained. There is no prevertebral soft tissue swelling. There is no pneumothorax in the lung apices. IMPRESSION: 1. No evidence of an acute fracture or dislocation. This document has been electronically signed by: Abad Lopez M.D. on 08/31/2024 04:25:56
[2024-08-30 23:38] VITALS: BP 121/76; PULSE 72; RESP 16; TEMP 36.7; O2SAT 96; BMI 23.6
--- NOTE | 2024-08-31 03:27 | PC.NURSE ---
pt reports fall approx 1900 with +headstrike, small bump noted to back of head. +neck pain with movement. per MD Serrano defer on c-collar at this time. verbal order for ct scan as entered. pt is axox4 ambulatory with steady gait presented from [facility] to room 14 at 0320.
--- NOTE | 2024-08-31 03:55 | ED.FALL ---
HPI - Fall General Chief Complaint: Fall Stated Complaint: headstrike due to fall Time Seen by Provider: 08/31/24 03:43 Source: patient Mode of arrival: ambulatory Limitations: no limitations History of Present Illness ED Provider: HPI Narrative: Apparently patient has slipped on icy cement steps while coming out of the apartment slipped about 7 steps comes here with swelling of the back of the head and upper back pain , happened around 18:00 no loss of consciousness no other injuries Related Data Previous Rx's ?Medication ?Instructions ?Recorded dicyclomine 20 mg tablet 20 mg PO QID PRN abdominal pain 06/19/20 #20 tabs omeprazole 40 mg capsule,delayed 40 mg PO DAILY 4 weeks #28 caps 06/19/20 release ondansetron HCl 4 mg tablet 4 mg PO Q8H PRN nausea and 07/08/20 (Zofran) vomiting #20 tabs lactulose 20 gram/30 mL oral 20 g (30 mL) PO BID PRN 09/13/20 solution constipation #1,200 mL dicyclomine 20 mg tablet 20 mg PO QID PRN abdominal pain 09/17/20 #20 tabs lorazepam 1 mg tablet (Ativan) 1 mg PO BEDTIME PRN anxiety #10 09/17/20 tabs Allergies Allergy/AdvReac Type Severity Reaction Status Date / Time No Known Allergies Allergy Verified 08/30/24 23:41 Review of Systems Review of Systems: Yes all other systems are reviewed and are negative [facility] Past Medical History Medical History No known health problems Social History Social History Alcohol intake: former Advance Directives: No Do you have a plan to hurt others: No Plan Physical Exam Vital Signs: Vital Signs: Last Vital Signs Temp 98.0 F 08/30/24 23:38 Pulse 72 08/30/24 23:38 Resp 16 08/30/24 23:38 BP 121/76 08/30/24 23:38 Pulse Ox 96 08/30/24 23:38 O2 Del Method Room Air 08/30/24 23:38 BMI result Body Mass Index 23.6 Appearance: Alert. Oriented X3. No acute distress. Eyes: PERRLA, No Nystagmus ENT: Pharynx normal. Oral Mucosa moist soft tissue swelling of the top of the head no midline neck tenderness Neck: Normal inspection. Neck supple. No midline tenderness CVS: Normal heart rate and rhythm. Pulses normal. Respiratory: No respiratory distress. Equal air entry bilateral, no wheezing/rales/rhonchi Abdomen: Soft and nontender. Bowel sounds are present, no mass palpable, no CVA tenderness Skin: Skin warm and dry. Normal skin color. Normal skin turgor. Extremities: No lower extremity edema. No calf tenderness Neuro: Oriented X 3. No motor deficit. No sensory deficit.No cerebellar signs , cranial nerves II-XII intact Medical Decision Making Radiology Impression Discussion of test interpretation with radiology: I have reviewed the radiologist's reading. Radiologist Impression: [address] [address] XRay Report Signed Patient: Lora Velazquez MR#: [id number] : 12/13/1977 Acct:[id number] Age/Sex: 46 / F ADM Date: 08/30/24 Loc: HO.ED Attending Dr: Ordering Physician: Generic ED Physician Date of Service: 08/30/24 Procedure(s): XR knee LT 4V Accession Number(s): [id number] cc: Generic ED Physician; Physician,Unknown ~ CLINICAL HISTORY: Fall, swelling 4 view left knee Comparison: None Findings: Tendon fixation hardware in the patella and tibia. No evidence of hardware loosening. Mild degenerative changes. No joint effusion. No fracture. IMPRESSION: 1. No acute findings. This document has been electronically signed by: Madan Peck MD on 08/30/2024 22:44:59 Discharge Plan Discharge Clinical Impression: Minor closed head injury Patient Disposition: Home, Self-Care Instructions: Head Injury (ED) Additional Instructions: Your CT scan of the head and C-spine negative for acute Tylenol/Motrin for pain as needed Prescriptions: No Action ondansetron HCl [Zofran] 4 mg tablet 4 mg PO Q8H PRN (Reason: nausea and vomiting) Qty: 20 0RF lactulose 20 gram/30 mL solution 20 g PO BID PRN (Reason: constipation) Qty: 1200 0RF dicyclomine 20 mg tablet 20 mg PO QID PRN (Reason: abdominal pain) Qty: 20 0RF omeprazole 40 mg capsule,delayed release(DR/EC) 40 mg PO DAILY 28 Days Qty: 28 0RF dicyclomine 20 mg tablet 20 mg PO QID PRN (Reason: abdominal pain) Qty: 20 0RF lorazepam [Ativan] 1 mg tablet 1 mg PO BEDTIME PRN (Reason: anxiety) Qty: 10 0RF Print Language: Greek
[2024-08-31] MEDS: Ibuprofen 600 MG TABLET PO (04:45)
[2024-08-31 04:49] VITALS: BP 110/78; PULSE 84; RESP 16; TEMP 36.7; O2SAT 98
== END 2024-08-31 04:53 | disposition home or self-care (01) ==
PROVIDERS: Emergency Provider Internal Medicine
DX: S09.90XA Unspecified injury of head, initial encounter (principal); R51.9 Headache, unspecified; M54.2 Cervicalgia; W00.0XXA Fall on same level due to ice and snow, initial encounter; Y93.9 Activity, unspecified; Y92.89 Other specified places as the place of occurrence of the external cause; Y99.8 Other external cause status
CPT/HCPCS: 70450; 72125; 99284

== ENCOUNTER → 2024-08-31 03:20 | Outpatient (BNV) | payer SELFPAY | PROVIDERS: Emergency Provider Internal Medicine; Visit Provider Radiology Diagnostic Radiology | DX: M54.2 Cervicalgia (principal); R22.0 Localized swelling, mass and lump, head; W00.1XXA Fall from stairs and steps due to ice and snow, initial encounter | CPT/HCPCS: 70450; 72125 ==